=== PATIENT | male | born 1985 | race Caucasian/White ===

== ENCOUNTER 2018-02-15 22:32 | Emergency (ER) | payer MEDICAID ==
[2018-02-15 23:50] LABS: AMPHETAMINE QUAL UR NONE DETECTED (NEG <=1000)
[2018-02-16 00:49] LABS: BASOPHIL % 0.4 % (0-2); PLATELET COUNT 208 x10^3mcL (130-400)
[2018-02-16 01:09] LABS: CALCIUM 8.6 mg/dL (8.5-10.1); CARBON DIOXIDE 25.3 mmol/L (21-32); CHLORIDE SERUM 103 mmol/L (98-107); CREATININE SERUM 0.9 mg/dL (0.7-1.3); GFR1 > 60 mL/min; GLUCOSE SERUM 97 mg/dL (74-106); POTASSIUM SERUM 3.8 mmol/L (3.5-5.1); SODIUM SERUM 134 mmol/L (136-145)
[2018-02-16 01:14] LABS: ALBUMIN 3.7 g/dL (3.4-5.0); ALKALINE PHOSPHATASE 83 U/L (46-116); ALT/SGPT 72 U/L (16-63); AST/SGOT 38 U/L (15-37); BILIRUBIN TOTAL 0.5 mg/dL (0.20-1.00); TOTAL PROTEIN, SERUM 7.3 g/dL (6.4-8.2)
[2018-02-16 03:06] VITALS: BP 102/67
== END 2018-02-16 03:06 | disposition home or self-care (01) ==
LOC: ED 22:32
PROVIDERS: Emergency Medicine
DX: G44.209 Tension-type headache, unspecified, not intractable (principal); R53.1 Weakness
CPT/HCPCS: 36415; G0480; J1885